=== PATIENT | female | born 1990 | race Hispanic/Latino ===

== ENCOUNTER 2017-06-25 03:24 | Emergency (ER) | payer SELFPAY | END 2017-06-25 03:35 | disposition left against medical advice (07) | LOC: EDH 03:24 | DX: R05 Cough (principal); Z53.21 Procedure and treatment not carried out due to patient leaving prior to being seen by health care provider ==

== ENCOUNTER 2017-07-24 20:58 | Emergency (ER) | payer BC ==
[2017-07-24 21:39] LABS: BASOPHILS % (AUTO) 0.6 % (0.0-5.0); EOSINOPHILS % (AUTO) 0.5 % (0.0-8.0); HEMATOCRIT 36.7 % (36-48); LYMPHOCYTES % (AUTO) 26.3 % (21.0-51.0); MEAN CORPUSCULAR HEMOGLOBIN 19.7 pg (27.0-33.0); MEAN CORPUSCULAR HGB CONC 30.7 g/dL (32.0-36.0); MEAN CORPUSCULAR VOLUME 64.1 fL (79-99); MONOCYTES % (AUTO) 6.9 % (3.0-13.0); NEUTROPHILS % (AUTO) 65.7 % (40.0-77.0); NUCLEATED RED BLOOD CELLS 0.1 % (0.0-0.19); PLATELET COUNT (AUTO) 421 K/uL (130-400); RED BLOOD CELL COUNT(AUTO) 5.72 MIL/uL (4.00-5.50); RED CELL DISTRIBUTION WIDTH 19.6 % (11.0-15.5); WHITE BLOOD COUNT (AUTO) 13.2 K/uL (4.8-10.8)
[2017-07-24] MEDS ORDERED: SUMATRIPTAN SUCCINATE 6 MG/VIAL 1ML SQ ONE (21:40)
[2017-07-24 21:47] LABS: CREATININE 0.7 mg/dL (0.5-1.5); POTASSIUM 3.9 mmol/L (3.5-5.1)
[2017-07-24 21:50] LABS: INR 0.9 (0.85-1.15); PROTHROMBIN TIME 9.3 SEC (9.6-11.6)
[2017-07-24 21:51] LABS: PARTIAL THROMBOPLASTIN TIME 24.4 SEC (26.3-35.5)
[2017-07-24 21:52] LABS: ALBUMIN 3.2 g/dL (3.5-5.0); BILIRUBIN,TOTAL 0.2 mg/dL (0.2-1.0); TOTAL PROTEIN, SERUM 7.6 g/dL (6.0-8.3)
== END 2017-07-24 23:02 | disposition home or self-care (01) ==
LOC: EDH 20:58
DX: G43.909 Migraine, unspecified, not intractable, without status migrainosus (principal); R79.1 Abnormal coagulation profile; Z72.0 Tobacco use
CPT/HCPCS: 36415; 70450; 80053; 81025; 85025; 85610; 85730; 96372; 99285; J3030

== ENCOUNTER 2020-10-11 11:47 | Inpatient (IN) | payer BC, OTHER ==
[~2020-10-11] VITALS: Ht 154.9 cm; Wt 167.7 kg
[2020-10-11] VITALS (10 sets, daily range): BP systolic 154–197; BP diastolic 105–149
[2020-10-11 12:17] LABS: BASOPHILS % (AUTO) 0.3 % (0.0-5.0); EOSINOPHILS % (AUTO) 0.5 % (0.0-8.0); HEMATOCRIT 47.4 % (36-48); LYMPHOCYTES % (AUTO) 18.1 % (21.0-51.0); MEAN CORPUSCULAR HEMOGLOBIN 23.9 pg (27.0-33.0); MEAN CORPUSCULAR HGB CONC 29.7 g/dL (32.0-36.0); MEAN CORPUSCULAR VOLUME 80.5 fL (79-99); MONOCYTES % (AUTO) 5.9 % (3.0-13.0); NEUTROPHILS % (AUTO) 74.9 % (40.0-77.0); PLATELET COUNT (AUTO) 280 K/uL (130-400); RED BLOOD CELL COUNT(AUTO) 5.89 MIL/uL (4.00-5.50); RED CELL DISTRIBUTION WIDTH 17.2 % (11.0-15.5); WHITE BLOOD COUNT (AUTO) 11.9 K/uL (4.8-10.8)
[2020-10-11 12:27] LABS: CREATININE 0.7 mg/dL (0.5-1.5); POTASSIUM 3.5 mmol/L (3.5-5.1)
[2020-10-11 12:29] LABS: INR 1.15 (0.85-1.15); PROTHROMBIN TIME 12.4 SEC (9.6-11.6)
[2020-10-11 12:30] LABS: PARTIAL THROMBOPLASTIN TIME 25.1 SEC (26.3-35.5)
[2020-10-11 12:40] LABS: ALBUMIN 2.9 g/dL (3.5-5.0); TOTAL PROTEIN, SERUM 7.7 g/dL (6.0-8.3); TROPONIN I 0.06 ng/mL (0.00-0.06)
[2020-10-11 12:44] LABS: B-TYPE NATRIURETIC PEPTIDE 843 pg/mL (0-100)
[2020-10-11] MEDS ORDERED: FUROSEMIDE 20MG VIAL IV ONE (13:15)
[2020-10-11] MEDS ORDERED: ALPRAZOLAM 0.25 MG TABLET PO ONE (13:15)
[2020-10-11 13:33] LABS: ACETAMINOPHEN < 1 mcg/mL (10-30); ALCOHOL, BLOOD < 3 mg/dL (0-10); SALICYLATE < 2.8 mg/dL (2.8-20.0)
[2020-10-11] MEDS ORDERED: LACTULOSE 20 GM/30 ML UDCUP PO PRN (14:00)
[2020-10-11] MEDS ORDERED: ONDANSETRON 4MG INJ IV PRN (14:00)
[2020-10-11] MEDS ORDERED: ACETAMINOPHEN 325 MG TAB PO PRN ×2 (14:00)
[2020-10-11 14:16] LABS: HEMOGLOBIN A1C 6.6 % (4.0-6.0)
[2020-10-11 14:20] LABS: APPEARANCE,URINE Clear (CLEAR); BILIRUBIN,URINE Negative (NEGATIVE); COLOR,URINE Yellow (YELLOW); GLUCOSE, URINE (UA) Negative (NEGATIVE); KETONES,URINE Negative (NEGATIVE); LEUKOCYTE ESTERASE ,URINE Negative (NEGATIVE); NITRATE,URINE Negative (NEGATIVE); OCCULT BLOOD,URINE Negative (NEGATIVE); PROTEIN,URINE Trace mg/dL (NEGATIVE)
[2020-10-11 14:25] LABS: MAGNESIUM 1.7 mg/dL (1.80-2.40); THYROID STIMULATING HORMONE 2.47 uIU/mL (0.36-3.74)
[2020-10-11 14:28] LABS: AMPHET/METH SCREEN,URINE NEGATIVE (NEGATIVE); BARBITURATE SCREEN, URINE NEGATIVE (NEGATIVE); BENZODIAZEPINES SCREEN,URINE NEGATIVE (NEGATIVE); CANNABINOID SCREEN,URINE NEGATIVE (NEGATIVE); COCAINE SCREEN,URINE NEGATIVE (NEGATIVE); OPIATE SCREEN,URINE NEGATIVE (NEGATIVE); PHENCYCLIDINE SCREEN,URINE NEGATIVE (NEGATIVE)
[2020-10-11 14:30] LABS: BACTERIA,URINE Rare /HPF (None Seen); RBC,URINE 0-1 /HPF (0-1); SQUAMOUS EPITHELIAL CELL,UR Few /HPF (0-2); WBC,URINE 0-1 /HPF (0-1)
[2020-10-11] MEDS ORDERED: MAGNESIUM 2GM PREMIX 50ML 50 ML IV PRN (15:45)
[2020-10-11] MEDS: INSULIN HUMULIN R 100 UNIT/ML 3ML SQ SCH ×2 (16:30→21:00)
[2020-10-11] MEDS ORDERED: LISINOPRIL 20 MG TABLET ONE (17:01)
[2020-10-11] MEDS: LISINOPRIL 10 MG TABLET PO SCH (17:03)
[2020-10-11] MEDS: FUROSEMIDE 40MG VIAL IVP SCH (20:19)
[2020-10-11] MEDS: FAMOTIDINE 20MG TAB PO SCH (20:19)
[2020-10-11] MEDS ORDERED: LABETALOL 20MG SYG IV ONE (21:00)
[2020-10-12] VITALS (8 sets, daily range): BP systolic 121–169; BP diastolic 74–115
[2020-10-12] MEDS ORDERED: LABETALOL 20MG VIAL IV ONE (03:30)
[2020-10-12 05:20] LABS: BASOPHILS % (AUTO) 0.4 % (0.0-5.0); EOSINOPHILS % (AUTO) 0.5 % (0.0-8.0); HEMATOCRIT 47.1 % (36-48); LYMPHOCYTES % (AUTO) 16.2 % (21.0-51.0); MEAN CORPUSCULAR HEMOGLOBIN 24.1 pg (27.0-33.0); MEAN CORPUSCULAR HGB CONC 29.9 g/dL (32.0-36.0); MEAN CORPUSCULAR VOLUME 80.4 fL (79-99); MONOCYTES % (AUTO) 7.6 % (3.0-13.0); NEUTROPHILS % (AUTO) 74.8 % (40.0-77.0); PLATELET COUNT (AUTO) 292 K/uL (130-400); RED BLOOD CELL COUNT(AUTO) 5.86 MIL/uL (4.00-5.50); RED CELL DISTRIBUTION WIDTH 17.5 % (11.0-15.5); WHITE BLOOD COUNT (AUTO) 12.8 K/uL (4.8-10.8)
[2020-10-12 05:53] LABS: CREATININE 0.8 mg/dL (0.5-1.5); POTASSIUM 3.5 mmol/L (3.5-5.1)
[2020-10-12 06:09] LABS: B-TYPE NATRIURETIC PEPTIDE 751 pg/mL (0-100)
[2020-10-12] MEDS: INSULIN HUMULIN R 100 UNIT/ML 3ML SQ SCH ×5 (07:30→21:50)
[2020-10-12] MEDS ORDERED: LISINOPRIL 10 MG TABLET PO SCH (09:00)
[2020-10-12] MEDS: ASPIRIN 325 MG TABLET PO SCH (09:55)
[2020-10-12] MEDS: FUROSEMIDE 40MG VIAL IVP SCH ×3 (09:55→21:45)
[2020-10-12] MEDS: FAMOTIDINE 20MG TAB PO SCH ×2 (09:56→21:40)
[2020-10-12] MEDS: LISINOPRIL 10 MG TABLET PO SCH ×2 (09:56→16:39)
[2020-10-12] MEDS: ENOXAPARIN SODIUM 40 MG/0.4 ML SYRINGE SQ SCH (09:57)
[2020-10-12] MEDS ORDERED: METOPROLOL SUCCINATE 50 MG TAB.SR.24H PO SCH (13:45)
[2020-10-13 03:34] VITALS: BP 131/87
[2020-10-13 05:53] LABS: BASOPHILS % (AUTO) 0.4 % (0.0-5.0); HEMATOCRIT 49.1 % (36-48); LYMPHOCYTES % (AUTO) 21.8 % (21.0-51.0); MEAN CORPUSCULAR HEMOGLOBIN 24.1 pg (27.0-33.0); MEAN CORPUSCULAR HGB CONC 29.3 g/dL (32.0-36.0); MEAN CORPUSCULAR VOLUME 82.2 fL (79-99); MONOCYTES % (AUTO) 8.2 % (3.0-13.0); NEUTROPHILS % (AUTO) 68.2 % (40.0-77.0); PLATELET COUNT (AUTO) 316 K/uL (130-400); RED BLOOD CELL COUNT(AUTO) 5.97 MIL/uL (4.00-5.50); RED CELL DISTRIBUTION WIDTH 18.2 % (11.0-15.5); WHITE BLOOD COUNT (AUTO) 11.4 K/uL (4.8-10.8)
[2020-10-13 06:02] LABS: MAGNESIUM 1.9 mg/dL (1.80-2.40); POTASSIUM 3.8 mmol/L (3.5-5.1)
[2020-10-13] MEDS: FUROSEMIDE 40MG VIAL IVP SCH ×2 (06:36→22:03)
[2020-10-13 08:07] VITALS: BP 119/79
[2020-10-13] MEDS ORDERED: METOPROLOL SUCCINATE 50 MG TAB.SR.24H PO SCH (09:00)
[2020-10-13] MEDS: FAMOTIDINE 20MG TAB PO SCH ×2 (09:01→22:02)
[2020-10-13] MEDS: ASPIRIN 325 MG TABLET PO SCH (09:01)
[2020-10-13] MEDS: LISINOPRIL 10 MG TABLET PO SCH (09:01)
[2020-10-13] MEDS: ENOXAPARIN SODIUM 40 MG/0.4 ML SYRINGE SQ SCH (09:02)
[2020-10-13] MEDS: INSULIN HUMULIN R 100 UNIT/ML 3ML SQ SCH ×3 (11:30→21:00)
[2020-10-13 12:00] VITALS: BP 127/92
[2020-10-13 12:09] LABS: HEMOGLOBIN A1C 6.6 % (4.0-6.0)
[2020-10-13] MEDS: POTASSIUM CHLORIDE 10% ELIXIR 20 MEQ/15 ML UDCUP PO SCH (13:25)
[2020-10-13 16:00] VITALS: BP 152/96
[2020-10-13 19:15] VITALS: BP 132/88
[2020-10-13] MEDS: METOPROLOL SUCCINATE 50 MG TAB.SR.24H PO SCH (22:02)
[2020-10-14] VITALS (7 sets, daily range): BP systolic 136–148; BP diastolic 84–96
[2020-10-14] MEDS: INSULIN HUMULIN R 100 UNIT/ML 3ML SQ SCH ×4 (05:29→21:00)
[2020-10-14 05:48] LABS: BASOPHILS % (AUTO) 0.7 % (0.0-5.0); EOSINOPHILS % (AUTO) 1.2 % (0.0-8.0); HEMATOCRIT 47.2 % (36-48); LYMPHOCYTES % (AUTO) 22.4 % (21.0-51.0); MEAN CORPUSCULAR HGB CONC 29.4 g/dL (32.0-36.0); MEAN CORPUSCULAR VOLUME 81.5 fL (79-99); MONOCYTES % (AUTO) 8.2 % (3.0-13.0); NEUTROPHILS % (AUTO) 67.2 % (40.0-77.0); PLATELET COUNT (AUTO) 311 K/uL (130-400); RED BLOOD CELL COUNT(AUTO) 5.79 MIL/uL (4.00-5.50); RED CELL DISTRIBUTION WIDTH 17.6 % (11.0-15.5); WHITE BLOOD COUNT (AUTO) 10.7 K/uL (4.8-10.8)
[2020-10-14 06:01] LABS: CREATININE 0.9 mg/dL (0.5-1.5); MAGNESIUM 1.9 mg/dL (1.80-2.40)
[2020-10-14] MEDS: FUROSEMIDE 40MG VIAL IVP SCH (09:39)
[2020-10-14] MEDS: METOPROLOL SUCCINATE 50 MG TAB.SR.24H PO SCH ×2 (09:39→21:51)
[2020-10-14] MEDS: LISINOPRIL 10 MG TABLET PO SCH (09:39)
[2020-10-14] MEDS: FAMOTIDINE 20MG TAB PO SCH ×2 (09:39→21:51)
[2020-10-14] MEDS: ASPIRIN 325 MG TABLET PO SCH (09:39)
[2020-10-14] MEDS: MAGNESIUM OXIDE 400 MG TABLET PO SCH (09:41)
[2020-10-14] MEDS: POTASSIUM CHLORIDE 10% ELIXIR 20 MEQ/15 ML UDCUP PO SCH (11:45)
[2020-10-14 20:58] LABS: CHOLESTEROL 100 mg/dL (<200); HDL CHOLESTEROL 27 mg/dL (35-85); LDL DIRECT 66 mg/dL (0-99); TRIGLYCERIDES 93 mg/dL (30-200)
[2020-10-14] MEDS ORDERED: FUROSEMIDE 40MG VIAL IV ONE (21:00)
[2020-10-14] MEDS: LISINOPRIL 20 MG TABLET PO SCH (21:51)
[2020-10-15 03:53] VITALS: BP 133/83
[2020-10-15 05:54] LABS: MAGNESIUM 1.8 mg/dL (1.80-2.40); POTASSIUM 3.9 mmol/L (3.5-5.1)
[2020-10-15] MEDS: INSULIN HUMULIN R 100 UNIT/ML 3ML SQ SCH ×2 (06:33→11:30)
[2020-10-15 07:48] VITALS: BP 119/86
[2020-10-15] MEDS ORDERED: PERFLUTREN PROTEIN-A MICROSPHR 0.22 MG/ML VIAL IV ONE (08:42)
[2020-10-15] MEDS ORDERED: FUROSEMIDE 40 MG TABLET PO SCH (09:00)
[2020-10-15] MEDS: FAMOTIDINE 20MG TAB PO SCH (10:40)
[2020-10-15] MEDS: LISINOPRIL 20 MG TABLET PO SCH (10:40)
[2020-10-15] MEDS: MAGNESIUM OXIDE 400 MG TABLET PO SCH (10:40)
[2020-10-15] MEDS: METOPROLOL SUCCINATE 50 MG TAB.SR.24H PO SCH (10:40)
[2020-10-15 11:03] VITALS: BP 138/94
[2020-10-15] MEDS ORDERED: LISI20TA24 PO (13:42)
[2020-10-15] MEDS ORDERED: FURO40TA7 PO (13:42)
[2020-10-15] MEDS ORDERED: METO-409 PO (13:42)
[2020-10-16] MEDS ORDERED: ASPIRIN 81MG CHEW TAB PO SCH (09:00)
== END 2020-10-15 16:40 | disposition home or self-care (01) | DRG 292 ==
LOC: EDH 11:47 → OBSVTOIN 11:48 → EDHIP 11:48 → 3AH 23:28
PROVIDERS: ADMIT Internal Medicine; ATTEND Internal Medicine
DX: I11.0 Hypertensive heart disease with heart failure (principal); I16.1 Hypertensive emergency; Z68.45 Body mass index [BMI] 70 or greater, adult; I50.9 Heart failure, unspecified; D72.829 Elevated white blood cell count, unspecified; R06.09 Other forms of dyspnea; E66.01 Morbid (severe) obesity due to excess calories; M79.89 Other specified soft tissue disorders; E11.9 Type 2 diabetes mellitus without complications; E87.70 Fluid overload, unspecified; I16.0 Hypertensive urgency; F41.9 Anxiety disorder, unspecified; R04.0 Epistaxis; F32.9 Major depressive disorder, single episode, unspecified; Z79.899 Other long term (current) drug therapy; Z82.49 Family history of ischemic heart disease and other diseases of the circulatory system
CPT/HCPCS: 36415; 71045; 80048; 80053; 80061; 80305; 81001; 81025; 82550; 82948; 83036; 83735; 83874; 83880; 84145; 84439; 84443; 84484; 85025; 85610; 85730; 86140; 87040; 87088; 93005; 93306; 96374; C8924; G0378; G0481; J1650; J1940